=== PATIENT | female | born 1985 | race Caucasian/White ===

== ENCOUNTER 2017-03-22 05:09 | Inpatient (IN) | payer OTHER ==
[2017-03-22] MEDS ORDERED: SODIUM CHLORIDE 0.9% 50 ML 25 ML IV PRN (05:14)
[2017-03-22] MEDS: LACTATED RINGERS 1,000 ML IV SCH ×2 (05:35→06:05)
[2017-03-22] MEDS ORDERED: CITRIC ACID/SODIUM CITRATE SOL PO SCH (06:00)
[2017-03-22] MEDS ORDERED: CEFAZOLIN SODIUM 1 GM PDS IV ONE (06:55)
[2017-03-22] MEDS ORDERED: [UNRECOGNIZED DRUG - OTHER] IV ONE (07:10)
[2017-03-22] MEDS ORDERED: KETOROLAC TROMETHAMINE 30 MG/ML SOL ONE (07:54)
[2017-03-22] MEDS ORDERED: FENTANYL 100MCG/2ML SOL ONE (08:08)
[2017-03-22] MEDS ORDERED: TEMAZEPAM 15MG 15 MG CAP PO PRN (08:09)
[2017-03-22] MEDS ORDERED: KETOROLAC TROMETHAMINE 30 MG/ML SOL IV PRN (08:09)
[2017-03-22] MEDS ORDERED: BENZOCAINE/MENTHOL 1 SPR TOP PRN (08:09)
[2017-03-22] MEDS ORDERED: BISACODYL 10 MG SUP PR PRN (08:09)
[2017-03-22] MEDS ORDERED: METHYLERGONOVINE MALEATE 0.2 MG TAB PO PRN (08:09)
[2017-03-22] MEDS ORDERED: FLEET ENEMA PR PRN (08:09)
[2017-03-22] MEDS ORDERED: DIPHENHYDRAMINE 25 MG CAP PO PRN (08:09)
[2017-03-22] MEDS ORDERED: WITCH HAZEL 1 EA PAD TOP PRN (08:09)
[2017-03-22] MEDS ORDERED: LACTATED RINGERS 1,000 ML IV SCH (08:15)
[2017-03-22] MEDS: APAP/HYDROCODONE 325/5 TAB PO PRN ×4 (09:09→21:35)
[2017-03-22] MEDS: CEFAZOLIN (PREMIX) 1 GM 1 GM/50 ML SOL IV SCH ×2 (09:31→12:45)
[2017-03-22] MEDS: DOCUSATE SODIUM 100 MG SGL PO SCH ×2 (10:14→21:35)
[2017-03-22] MEDS: IBUPROFEN 600 MG TAB PO PRN ×2 (10:14→19:29)
[2017-03-22] MEDS ORDERED: CEFAZOLIN (PREMIX) 1 GM 1 GM/50 ML SOL IV ONE (12:41)
[2017-03-23] MEDS: ONDANSETRON HCL 4 MG/2 ML SOL IV PRN ×2 (02:04→10:51)
[2017-03-23] MEDS: SODIUM CHLORIDE 0.9% FLUSH 10 ML SOL IV SCH ×3 (02:04→18:34)
[2017-03-23] MEDS: IBUPROFEN 600 MG TAB PO PRN ×2 (04:24→15:53)
[2017-03-23] MEDS: APAP/HYDROCODONE 325/5 TAB PO PRN ×4 (04:25→18:34)
[2017-03-23 07:02] VITALS: RESP 20
[2017-03-23] MEDS: DOCUSATE SODIUM 100 MG SGL PO SCH ×2 (10:51→21:28)
[2017-03-24] MEDS: APAP/HYDROCODONE 325/5 TAB PO PRN ×5 (01:32→23:52)
[2017-03-24] MEDS: IBUPROFEN 600 MG TAB PO PRN ×4 (01:32→23:52)
[2017-03-24] MEDS: SODIUM CHLORIDE 0.9% FLUSH 10 ML SOL IV SCH (02:07)
[2017-03-24] MEDS: DOCUSATE SODIUM 100 MG SGL PO SCH ×2 (08:41→21:08)
[2017-03-24] MEDS ORDERED: ONDANSETRON 4 MG ODT BU PRN (18:56)
[2017-03-24] MEDS ORDERED: ONDANSETRON 4 MG ODT ONE (19:49)
[2017-03-25 01:52] VITALS: TEMP 97.6; O2SAT 96
[2017-03-25] MEDS: APAP/HYDROCODONE 325/5 TAB PO PRN ×2 (03:48→10:04)
[2017-03-25] MEDS: IBUPROFEN 600 MG TAB PO PRN (06:11)
[2017-03-25] MEDS: DOCUSATE SODIUM 100 MG SGL PO SCH (10:04)
[2017-03-25 10:25] VITALS: BP 113/73; PULSE 71
== END 2017-03-25 11:45 | disposition home or self-care (01) | DRG 540 ==
LOC: OB 05:09 → PREOBSVTOIN 10:00
PROVIDERS: ADMIT Family Medicine; ATTEND Family Medicine
PROC: 10D00Z1 Extraction of Products of Conception, Low, Open Approach (ICD-10-PCS; principal; 2017-03-22 06:30)
DX: O34.219 Maternal care for unspecified type scar from previous cesarean delivery (principal); Z37.0 Single live birth; Z3A.39 39 weeks gestation of pregnancy
CPT/HCPCS: 59025; 85018; J0690; J1885; J2405; J2590; J3010; A6402